=== PATIENT | male | born 1935 | race Hispanic/Latino ===

== ENCOUNTER → 2018-04-13 | Outpatient (CLI) | payer MEDICARE ==
[~2018-04-13] VITALS: Ht 162.6 cm; Wt 69.9 kg
[~2018-04-13] MED LIST: ASPI-555 PO; ATOR40TA71 PO; CEFTRIAXONE SODIUM 1 GM IVP SCH; ERGO500014 PO; LOSA1TAB42 PO; METO-409 PO; TAMS0.4C32 PO
[2018-04-13 09:40] LABS: BASOPHILS % (AUTO) 0.4 % (0.0-5.0); HEMATOCRIT 39.7 % (42-54); LYMPHOCYTES % (AUTO) 7.3 % (21.0-51.0); MEAN CORPUSCULAR HEMOGLOBIN 29.6 pg (27.0-33.0); MEAN CORPUSCULAR HGB CONC 33.9 g/dL (32.0-36.0); MEAN CORPUSCULAR VOLUME 87.1 fL (79-99); MONOCYTES % (AUTO) 10.5 % (3.0-13.0); NEUTROPHILS % (AUTO) 81.8 % (40.0-77.0); PLATELET COUNT (AUTO) 117 K/uL (130-400); RED BLOOD CELL COUNT(AUTO) 4.56 MIL/uL (4.50-6.20); RED CELL DISTRIBUTION WIDTH 13.4 % (11.0-15.5); WHITE BLOOD COUNT (AUTO) 8.2 K/uL (4.8-10.8)
[2018-04-13 09:47] VITALS: BP 127/61
[2018-04-13 09:50] LABS: CREATININE 1.3 mg/dL (0.5-1.5); POTASSIUM 3.3 mmol/L (3.5-5.1)
== END ==
LOC: DAH 10:00 → EDSTATUS 04-21 08:00
PROVIDERS: ATTEND Urology
DX: N40.0 Benign prostatic hyperplasia without lower urinary tract symptoms (principal); Z53.9 Procedure and treatment not carried out, unspecified reason; J11.1 Influenza due to unidentified influenza virus with other respiratory manifestations
CPT/HCPCS: 36415; 80048; 85025; 93005

== ENCOUNTER 2018-04-14 09:13 | Inpatient (IN) | payer MEDICARE ==
[~2018-04-14] VITALS: Ht 167.6 cm; Wt 70.3 kg
[~2018-04-14 09:13] MED LIST changes: -CEFTRIAXONE SODIUM 1 GM IVP SCH
[2018-04-14] MEDS ORDERED: SODIUM CHLORIDE 0.9% 1000ML 1,000 ML IV ONE (09:27)
[2018-04-14] MEDS ORDERED: CEFTRIAXONE SODIUM 1 GM ONE (09:27)
[2018-04-14 10:00] LABS: BASOPHILS % (AUTO) 0.4 % (0.0-5.0); HEMATOCRIT 36.7 % (42-54); LYMPHOCYTES % (AUTO) 6.3 % (21.0-51.0); MEAN CORPUSCULAR HEMOGLOBIN 28.8 pg (27.0-33.0); MEAN CORPUSCULAR HGB CONC 33.6 g/dL (32.0-36.0); MEAN CORPUSCULAR VOLUME 85.8 fL (79-99); MONOCYTES % (AUTO) 9.8 % (3.0-13.0); NEUTROPHILS % (AUTO) 83.5 % (40.0-77.0); NUCLEATED RED BLOOD CELLS 0.1 % (0.0-0.19); PLATELET COUNT (AUTO) 101 K/uL (130-400); RED BLOOD CELL COUNT(AUTO) 4.27 MIL/uL (4.50-6.20); RED CELL DISTRIBUTION WIDTH 13.3 % (11.0-15.5); WHITE BLOOD COUNT (AUTO) 7.2 K/uL (4.8-10.8)
[2018-04-14 10:11] LABS: ALBUMIN 3.2 g/dL (3.5-5.0); BILIRUBIN,TOTAL 1.3 mg/dL (0.2-1.0); CREATININE 1.6 mg/dL (0.5-1.5); TOTAL PROTEIN, SERUM 6.9 g/dL (6.0-8.3)
[2018-04-14 10:13] LABS: POTASSIUM 2.9 mmol/L (3.5-5.1)
[2018-04-14 10:20] LABS: APPEARANCE,URINE Cloudy (CLEAR); BILIRUBIN,URINE Small (NEGATIVE); COLOR,URINE Dark Yellow (YELLOW); GLUCOSE, URINE (UA) Negative (NEGATIVE); KETONES,URINE Trace mg/dL (NEGATIVE); LEUKOCYTE ESTERASE ,URINE Moderate (NEGATIVE); NITRATE,URINE Negative (NEGATIVE); OCCULT BLOOD,URINE Moderate (NEGATIVE); PROTEIN,URINE POS 2+ (NEGATIVE)
[2018-04-14 10:26] LABS: INR 1.17 (0.85-1.15); PROTHROMBIN TIME 12.2 SEC (9.6-11.6)
[2018-04-14 10:28] LABS: BACTERIA,URINE Rare /HPF (None Seen); SQUAMOUS EPITHELIAL CELL,UR Rare /HPF (0-2)
[2018-04-14 10:42] LABS: PARTIAL THROMBOPLASTIN TIME 36.8 SEC (26.3-35.5)
[2018-04-14] MEDS ORDERED: ONDANSETRON HCL 4 MG/2 ML VIAL ONE (11:03)
[2018-04-14] MEDS ORDERED: POTASSIUM CHLORIDE 20 MEQ ERTAB PO ONE ×3 (11:03→14:09)
[2018-04-14] MEDS ORDERED: LEVOFLOXACIN 750 MG/D5W 150 ML 150 ML ONE (11:04)
[2018-04-14 12:45] VITALS: BP 139/97
[2018-04-14] MEDS: SODIUM CHLORIDE 0.9% 1000ML 1,000 ML IV SCH (14:30)
[2018-04-14] MEDS ORDERED: ONDANSETRON HCL 4 MG/2 ML VIAL IV PRN (14:30)
[2018-04-14] MEDS ORDERED: CEFTRIAXONE SODIUM 1 GM IV SCH (14:30)
[2018-04-14] MEDS ORDERED: MORPHINE SULFATE 2 MG/ML 1ML SYG IV PRN (14:30)
[2018-04-14 16:00] VITALS: BP 150/67
[2018-04-14] MEDS: ACETAMINOPHEN 325 MG TAB PO PRN (19:30)
[2018-04-14 20:00] VITALS: BP 169/87
[2018-04-14] MEDS: TAMSULOSIN HCL 0.4 MG CAP.ER.24H PO SCH (21:44)
[2018-04-14] MEDS: ATORVASTATIN CALCIUM 40 MG TABLET PO SCH (21:44)
[2018-04-14] MEDS: HYDRALAZINE HCL 20 MG/ML VIAL IV PRN (21:45)
[2018-04-14] MEDS: METOPROLOL TARTRATE 50 MG TAB PO SCH (21:45)
[2018-04-15] VITALS: BP 122/59
[2018-04-15] MEDS: ACETAMINOPHEN 325 MG TAB PO PRN ×3 (00:15→22:02)
[2018-04-15 04:00] VITALS: BP 126/53
[2018-04-15 05:48] LABS: HEMATOCRIT 37.5 % (42-54); MEAN CORPUSCULAR HEMOGLOBIN 29.4 pg (27.0-33.0); MEAN CORPUSCULAR HGB CONC 34.2 g/dL (32.0-36.0); PLATELET COUNT (AUTO) 104 K/uL (130-400); RED BLOOD CELL COUNT(AUTO) 4.36 MIL/uL (4.50-6.20); RED CELL DISTRIBUTION WIDTH 13.8 % (11.0-15.5); WHITE BLOOD COUNT (AUTO) 7.2 K/uL (4.8-10.8)
[2018-04-15 05:52] LABS: CREATININE 1.5 mg/dL (0.5-1.5); POTASSIUM 3.6 mmol/L (3.5-5.1)
[2018-04-15 08:00] VITALS: BP 135/108
[2018-04-15] MEDS: FAMOTIDINE/PF 20 MG/2 ML VIAL IV SCH (08:54)
[2018-04-15] MEDS: METOPROLOL TARTRATE 50 MG TAB PO SCH ×2 (08:54→22:02)
[2018-04-15 12:00] VITALS: BP 126/57
[2018-04-15] MEDS: ZOSYN 3.375GM+NS 50ML 50 ML IV SCH ×2 (12:11→17:56)
[2018-04-15 16:00] VITALS: BP 145/64
[2018-04-15] MEDS: SODIUM CHLORIDE 0.9% 1000ML 1,000 ML IV SCH (18:00)
[2018-04-15 20:00] VITALS: BP 132/82
[2018-04-15] MEDS: TAMSULOSIN HCL 0.4 MG CAP.ER.24H PO SCH (22:01)
[2018-04-15] MEDS: ATORVASTATIN CALCIUM 40 MG TABLET PO SCH (22:01)
[2018-04-16] VITALS (7 sets, daily range): BP systolic 102–160; BP diastolic 47–65
[2018-04-16] MEDS: ZOSYN 3.375GM+NS 50ML 50 ML IV SCH ×2 (03:27→09:50)
[2018-04-16 04:59] LABS: HEMATOCRIT 35.4 % (42-54); MEAN CORPUSCULAR HEMOGLOBIN 28.4 pg (27.0-33.0); MEAN CORPUSCULAR VOLUME 85.9 fL (79-99); PLATELET COUNT (AUTO) 90 K/uL (130-400); RED BLOOD CELL COUNT(AUTO) 4.12 MIL/uL (4.50-6.20); RED CELL DISTRIBUTION WIDTH 13.7 % (11.0-15.5); WHITE BLOOD COUNT (AUTO) 6.6 K/uL (4.8-10.8)
[2018-04-16 05:07] LABS: CREATININE 1.3 mg/dL (0.5-1.5)
[2018-04-16 05:09] LABS: POTASSIUM 2.9 mmol/L (3.5-5.1)
[2018-04-16] MEDS: POTASSIUM CHLORIDE 20 MEQ ERTAB PO SCH ×2 (06:53→11:12)
[2018-04-16] MEDS: ENOXAPARIN SODIUM 40 MG/0.4 ML SYRINGE SQ SCH (09:00)
[2018-04-16] MEDS: FAMOTIDINE/PF 20 MG/2 ML VIAL IV SCH (09:46)
[2018-04-16] MEDS: METOPROLOL TARTRATE 50 MG TAB PO SCH ×2 (09:46→20:51)
[2018-04-16] MEDS: NS-20 MEQ KCL 1000ML 1,000 ML IV SCH (12:56)
[2018-04-16 15:06] LABS: CREATININE 1.2 mg/dL (0.5-1.5); POTASSIUM 3.6 mmol/L (3.5-5.1)
[2018-04-16] MEDS: ACETAMINOPHEN 325 MG TAB PO PRN (15:29)
[2018-04-16] MEDS: MEROPENEM 500 MG VIAL IVP SCH (17:51)
[2018-04-16] MEDS: ATORVASTATIN CALCIUM 40 MG TABLET PO SCH (20:51)
[2018-04-16] MEDS: TAMSULOSIN HCL 0.4 MG CAP.ER.24H PO SCH (20:51)
[2018-04-17] MEDS: MEROPENEM 500 MG VIAL IVP SCH ×3 (00:31→18:05)
[2018-04-17] MEDS: NS-20 MEQ KCL 1000ML 1,000 ML IV SCH ×2 (00:31→18:06)
[2018-04-17 03:00] VITALS: BP 154/77
[2018-04-17 05:22] LABS: HEMATOCRIT 33.9 % (42-54); MEAN CORPUSCULAR HEMOGLOBIN 29.7 pg (27.0-33.0); MEAN CORPUSCULAR HGB CONC 34.6 g/dL (32.0-36.0); MEAN CORPUSCULAR VOLUME 85.9 fL (79-99); PLATELET COUNT (AUTO) 120 K/uL (130-400); RED BLOOD CELL COUNT(AUTO) 3.95 MIL/uL (4.50-6.20); RED CELL DISTRIBUTION WIDTH 13.8 % (11.0-15.5); WHITE BLOOD COUNT (AUTO) 6.7 K/uL (4.8-10.8)
[2018-04-17 05:39] LABS: ALBUMIN 2.1 g/dL (3.5-5.0); BILIRUBIN,TOTAL 0.6 mg/dL (0.2-1.0); POTASSIUM 3.6 mmol/L (3.5-5.1); TOTAL PROTEIN, SERUM 5.4 g/dL (6.0-8.3)
[2018-04-17] MEDS: POTASSIUM CHLORIDE 20 MEQ ERTAB PO SCH ×2 (06:03→09:11)
[2018-04-17] MEDS: ENOXAPARIN SODIUM 40 MG/0.4 ML SYRINGE SQ SCH (09:00)
[2018-04-17 09:21] VITALS: BP 133/62
[2018-04-17] MEDS: METOPROLOL TARTRATE 50 MG TAB PO SCH ×2 (09:31→21:10)
[2018-04-17] MEDS: FAMOTIDINE/PF 20 MG/2 ML VIAL IV SCH (09:31)
[2018-04-17 12:23] VITALS: BP 135/61
[2018-04-17] MEDS ORDERED: LACTULOSE 20 GM/30 ML UDCUP PO SCH (16:45)
[2018-04-17 16:59] VITALS: BP 144/63
[2018-04-17 19:00] VITALS: BP 146/69
[2018-04-17] MEDS: DOCUSATE SODIUM 100 MG CAP PO SCH (21:10)
[2018-04-17] MEDS: TAMSULOSIN HCL 0.4 MG CAP.ER.24H PO SCH (21:10)
[2018-04-17] MEDS: ATORVASTATIN CALCIUM 40 MG TABLET PO SCH (21:10)
[2018-04-18] VITALS (7 sets, daily range): BP systolic 134–159; BP diastolic 62–75
[2018-04-18] MEDS: MEROPENEM 500 MG VIAL IVP SCH ×4 (00:45→23:59)
[2018-04-18] MEDS: POTASSIUM CHLORIDE 20 MEQ ERTAB PO SCH ×2 (05:41→07:41)
[2018-04-18 05:57] LABS: HEMATOCRIT 35.2 % (42-54); MEAN CORPUSCULAR HEMOGLOBIN 28.6 pg (27.0-33.0); MEAN CORPUSCULAR HGB CONC 33.2 g/dL (32.0-36.0); MEAN CORPUSCULAR VOLUME 86.3 fL (79-99); PLATELET COUNT (AUTO) 132 K/uL (130-400); RED BLOOD CELL COUNT(AUTO) 4.08 MIL/uL (4.50-6.20); RED CELL DISTRIBUTION WIDTH 14.3 % (11.0-15.5); WHITE BLOOD COUNT (AUTO) 6.3 K/uL (4.8-10.8)
[2018-04-18 06:11] LABS: POTASSIUM 3.5 mmol/L (3.5-5.1)
[2018-04-18] MEDS: DOCUSATE SODIUM 100 MG CAP PO SCH ×2 (09:42→22:07)
[2018-04-18] MEDS: FAMOTIDINE/PF 20 MG/2 ML VIAL IV SCH (09:42)
[2018-04-18] MEDS: METOPROLOL TARTRATE 50 MG TAB PO SCH ×2 (09:42→22:07)
[2018-04-18] MEDS: NS-20 MEQ KCL 1000ML 1,000 ML IV SCH (17:46)
[2018-04-18] MEDS: ATORVASTATIN CALCIUM 40 MG TABLET PO SCH (22:06)
[2018-04-18] MEDS: TAMSULOSIN HCL 0.4 MG CAP.ER.24H PO SCH (22:07)
[2018-04-19 03:00] VITALS: BP 153/69
[2018-04-19 04:25] LABS: CREATININE 0.8 mg/dL (0.5-1.5); POTASSIUM 3.4 mmol/L (3.5-5.1)
[2018-04-19 08:00] VITALS: BP 126/61
[2018-04-19] MEDS: DOCUSATE SODIUM 100 MG CAP PO SCH ×2 (09:00→21:00)
[2018-04-19] MEDS: MEROPENEM 500 MG VIAL IVP SCH (09:12)
[2018-04-19] MEDS: FAMOTIDINE/PF 20 MG/2 ML VIAL IV SCH (09:15)
[2018-04-19] MEDS: METOPROLOL TARTRATE 50 MG TAB PO SCH ×2 (09:20→21:09)
[2018-04-19] MEDS ORDERED: POTASSIUM CHLORIDE 10% ELIXIR 20 MEQ/15 ML UDCUP PO SCH (10:30)
[2018-04-19 12:00] VITALS: BP 140/65
[2018-04-19 16:00] VITALS: BP 141/67
[2018-04-19] MEDS: NS-20 MEQ KCL 1000ML 1,000 ML IV SCH (17:40)
[2018-04-19] MEDS: AMOXICILLIN/POTASSIUM CLAV 500-125 TABLET PO SCH ×2 (18:05→23:56)
[2018-04-19 19:00] VITALS: BP 166/72
[2018-04-19] MEDS: ATORVASTATIN CALCIUM 40 MG TABLET PO SCH (21:09)
[2018-04-19] MEDS: PANTOPRAZOLE SODIUM 40 MG TABLET.DR PO SCH (21:09)
[2018-04-19] MEDS: TAMSULOSIN HCL 0.4 MG CAP.ER.24H PO SCH (21:09)
[2018-04-20] VITALS: BP 174/75
[2018-04-20 04:00] VITALS: BP 176/96
[2018-04-20] MEDS: HYDRALAZINE HCL 20 MG/ML VIAL IV PRN (04:20)
[2018-04-20 07:00] VITALS: BP 100/63
[2018-04-20] MEDS: METOPROLOL TARTRATE 50 MG TAB PO SCH ×2 (08:38→22:25)
[2018-04-20] MEDS: PANTOPRAZOLE SODIUM 40 MG TABLET.DR PO SCH ×2 (08:38→22:25)
[2018-04-20] MEDS: DOCUSATE SODIUM 100 MG CAP PO SCH ×2 (08:40→21:00)
[2018-04-20 11:00] VITALS: BP 132/71
[2018-04-20] MEDS: MEROPENEM 1 GM VIAL IVP SCH ×2 (11:41→18:50)
[2018-04-20 16:00] VITALS: BP 164/72
[2018-04-20] MEDS: NS-20 MEQ KCL 1000ML 1,000 ML IV SCH (18:50)
[2018-04-20 19:00] VITALS: BP 126/56
[2018-04-20] MEDS: TAMSULOSIN HCL 0.4 MG CAP.ER.24H PO SCH (22:25)
[2018-04-20] MEDS: ATORVASTATIN CALCIUM 40 MG TABLET PO SCH (22:25)
[2018-04-21] VITALS: BP 157/71
[2018-04-21] MEDS ORDERED: SODIUM CHLORIDE 0.9% 100 ML IV ONE (01:52)
[2018-04-21] MEDS: MEROPENEM 1 GM VIAL IVP SCH ×2 (02:17→12:10)
[2018-04-21 04:00] VITALS: BP 138/69
[2018-04-21 04:45] LABS: HEMATOCRIT 33.2 % (42-54); MEAN CORPUSCULAR HEMOGLOBIN 29.7 pg (27.0-33.0); MEAN CORPUSCULAR HGB CONC 34.4 g/dL (32.0-36.0); MEAN CORPUSCULAR VOLUME 86.3 fL (79-99); PLATELET COUNT (AUTO) 189 K/uL (130-400); RED BLOOD CELL COUNT(AUTO) 3.85 MIL/uL (4.50-6.20); RED CELL DISTRIBUTION WIDTH 14.3 % (11.0-15.5); WHITE BLOOD COUNT (AUTO) 5.9 K/uL (4.8-10.8)
[2018-04-21 04:52] LABS: CREATININE 0.9 mg/dL (0.5-1.5); POTASSIUM 3.5 mmol/L (3.5-5.1)
[2018-04-21 08:43] VITALS: BP 134/90
[2018-04-21] MEDS: METOPROLOL TARTRATE 50 MG TAB PO SCH (09:15)
[2018-04-21] MEDS: DOCUSATE SODIUM 100 MG CAP PO SCH (09:15)
[2018-04-21] MEDS: PANTOPRAZOLE SODIUM 40 MG TABLET.DR PO SCH (09:15)
[2018-04-21] MEDS ORDERED: MAGNESIUM 2GM PREMIX 50ML 50 ML IV PRN (10:30)
[2018-04-21] MEDS ORDERED: POTASSIUM CHLORIDE 20MEQ/100ML 100 ML IV PRN (10:30)
[2018-04-21] MEDS ORDERED: LIDOCAINE HCL-MPF 1% 2ML VIAL IVP PRN (10:30)
[2018-04-21] MEDS ORDERED: POTASSIUM CHLORIDE 10% ELIXIR 20 MEQ/15 ML UDCUP PO PRN (10:30)
[2018-04-21] MEDS ORDERED: POTASSIUM CHLORIDE 20 MEQ ERTAB PO PRN (10:30)
[2018-04-21 13:52] VITALS: BP 158/74
== END 2018-04-21 14:45 | disposition home or self-care (01) | DRG 871 ==
LOC: EDH 09:13 → EDHIP 11:36 → 3CH 12:33
PROVIDERS: ADMIT Hospitalist; ATTEND Hospitalist
DX: A41.9 Sepsis, unspecified organism (principal); N17.0 Acute kidney failure with tubular necrosis; N39.0 Urinary tract infection, site not specified; N41.9 Inflammatory disease of prostate, unspecified; E86.0 Dehydration; R19.7 Diarrhea, unspecified; E87.6 Hypokalemia; E78.5 Hyperlipidemia, unspecified; E83.42 Hypomagnesemia; I10 Essential (primary) hypertension; N20.0 Calculus of kidney; I25.10 Atherosclerotic heart disease of native coronary artery without angina pectoris; Z87.442 Personal history of urinary calculi; Z87.891 Personal history of nicotine dependence; Z95.1 Presence of aortocoronary bypass graft; Z83.3 Family history of diabetes mellitus; Z80.9 Family history of malignant neoplasm, unspecified; Z82.49 Family history of ischemic heart disease and other diseases of the circulatory system
CPT/HCPCS: 36415; 71045; 80048; 80053; 81001; 82948; 83605; 83735; 84484; 85025; 85027; 85610; 85730; 87040; 87088; 87486; 87581; 87633; 87798; 87804; 92610; 93005; 97039; A4218; G0378; J0360; J0696; J1650; J1956; J2185; J2405; J2543; J3480; J3490; J7030

== ENCOUNTER 2018-07-05 12:04 | Emergency (ER) | payer MEDICARE | END 2018-07-05 13:01 | disposition home or self-care (01) | LOC: EDH 12:04 | DX: L08.89 Other specified local infections of the skin and subcutaneous tissue (principal); L53.8 Other specified erythematous conditions; I10 Essential (primary) hypertension; E78.5 Hyperlipidemia, unspecified; Z87.891 Personal history of nicotine dependence | CPT/HCPCS: 73130 ==

== ENCOUNTER 2018-08-13 06:38 | Day surgery (SDC) | payer MEDICARE ==
[2018-08-11 13:38] LABS: BASOPHILS % (AUTO) 0.5 % (0.0-5.0); EOSINOPHILS % (AUTO) 2.2 % (0.0-8.0); HEMATOCRIT 34.5 % (42-54); LYMPHOCYTES % (AUTO) 22.3 % (21.0-51.0); MEAN CORPUSCULAR HGB CONC 33.2 g/dL (32.0-36.0); MEAN CORPUSCULAR VOLUME 87.4 fL (79-99); MONOCYTES % (AUTO) 9.3 % (3.0-13.0); NEUTROPHILS % (AUTO) 65.7 % (40.0-77.0); PLATELET COUNT (AUTO) 168 K/uL (130-400); RED BLOOD CELL COUNT(AUTO) 3.95 MIL/uL (4.50-6.20); RED CELL DISTRIBUTION WIDTH 14.9 % (11.0-15.5); WHITE BLOOD COUNT (AUTO) 6.4 K/uL (4.8-10.8)
[2018-08-11 13:45] VITALS: BP 177/94
[2018-08-11 13:45] LABS: CREATININE 1.1 mg/dL (0.5-1.5); POTASSIUM 4.2 mmol/L (3.5-5.1)
--- NOTE | 2018-08-11 14:05 | NUR ---
ekg abnormal ekg reported to Dr. Valenzuela. no further orders given. ok to proceed with sx
[2018-08-11 14:47] VITALS: BP 150/80
--- NOTE | 2018-08-11 14:47 | NUR ---
RE CHECKED B/P 150/80---68---16,,,,PT WITH NO DISCOMFORT
[~2018-08-13] VITALS: Ht 162.6 cm; Wt 69.1 kg
[2018-08-13] VITALS (16 sets, daily range): BP systolic 130–174; BP diastolic 61–77
[~2018-08-13 06:38] MED LIST changes: +LATA7.5D OP; +NETA2.5D OP; -TAMS0.4C32 PO; +ZOSYN 3.375GM+NS 50ML 50 ML IV SCH
[2018-08-13] MEDS ORDERED: LACTATED RINGERS 1000ML 1,000 ML IV ONE (07:13)
--- NOTE | 2018-08-13 07:15 | NUR ---
CONSULT: TAMARA MONACO RN NOTIFIED ROSEMARY MAR CRNA OF PATIENT NOT TAKING HIS METOPROLOL IN AM, STATED NO NEED TO TAKE IN AM.
[2018-08-13] MEDS ORDERED: ZOSYN 3.375GM+NS 50ML 50 ML IV ONE (07:17)
[2018-08-13] MEDS ORDERED: LIDOCAINE PF 2% 5ML ABBOJECT ONE (07:35)
[2018-08-13] MEDS ORDERED: PROPOFOL 10 MG/ML 20ML VIAL IV ONE (07:35)
[2018-08-13] MEDS ORDERED: FENTANYL CITRATE PF 50 MCG/1 ML 2ML VIAL ONE ×3 (07:36→11:06)
[2018-08-13] MEDS ORDERED: EPHEDRINE SULFATE 50 MG/ML AMPULE ONE (07:58)
[2018-08-13] MEDS ORDERED: OPIUM/BELLADONNA ALKALOIDS 1 EACH SUPP.RECT RC ONE (11:07)
[2018-08-13] MEDS ORDERED: PHENAZOPYRIDINE HCL 200 MG TABLET ONE (11:48)
--- NOTE | 2018-08-13 11:55 | NUR ---
RECEIVE PT RECEIVED FROM PACU VIA STRETCHER. AWAKE ALERT ORIENTED X3. PT STABLE. NOT IN ANY APPARENT DISTRESS. NO COMPLAINTS MADE. 18FR [place] CATH IN PLACE, SECURED IN PLACE, DRAINING LIGHT PINKISH URINE, NO CLOTS NOTED, 550 ML. CALL TREJO WITHIN REACH. WILL CALL FOR FAMILY TO COM IN TO ROOM WITH PT.
--- NOTE | 2018-08-13 12:40 | NUR ---
ELEVATED BP PT'S SBP IN THE 170'S, PT ASYMPTOMATIC. NOTIFIED BETTYE LINDSAY. PER [employer], RECHECK BP, MAY GIVE HYDRALAZINE 5MG IVP X 1 DOSE FOR SBP 170 OR ABOVE.
[2018-08-13] MEDS ORDERED: HYDRALAZINE HCL 20 MG/ML VIAL ONE (12:46)
--- NOTE | 2018-08-13 13:05 | NUR ---
DISCHARGE PT DISCHARGED VIA WHEELCHAIR WITH DAUGHTERS. PT STABLE. DENIES ANY PAIN OR CHEST PAIN, NO SHORTNESS OF BREATH OR LIGHTHEADEDNESS. 18FR STANTON CATH DRAINING CLEAR LIGHT PINK URINE TO LEG BAG, NO CLOTS NOTED. DRAINED 200ML PRIOR TO DISCHARGE. DISCHARGE INSTRUCTIONS GIVEN DAUGHTERS. VERBALIZED UNDERSTANDING. STANTON CATH HOME CARE INSTRUCTIONS GIVEN BY MANNY MARTÍNEZ. REINFORCED ST[facility] CATH CARE INSTRUCTIONS TO DAUGHTERS, VERBALIZED UNDERSTANDING. ALSO INSTRUCTED TO MONITOR PT'S BP AT HOME, IF ELEVATED OR IF HAVING CARDIAC SYMPTOMS LIKE CHEST PAIN, SOB, LIGHTHEADEDNESS, ETC, GO TO ER OR CALL 911. VERBALIZED UNDERSTANDING.
[2018-08-13] MEDS ORDERED: HYDRALAZINE HCL 20 MG/ML VIAL IV PRN (13:15)
--- NOTE | 2018-08-13 14:50 | NUR ---
REASSES PT BP153/70. DID NOT GIVE HYDRALAZINE.
== END 2018-08-13 13:05 | disposition home or self-care (01) ==
LOC: DAH 06:38
PROVIDERS: ATTEND Urology
DX: N40.1 Benign prostatic hyperplasia with lower urinary tract symptoms (principal); R33.8 Other retention of urine; N21.0 Calculus in bladder; I25.10 Atherosclerotic heart disease of native coronary artery without angina pectoris; Z95.1 Presence of aortocoronary bypass graft; I10 Essential (primary) hypertension; M81.0 Age-related osteoporosis without current pathological fracture; Z98.890 Other specified postprocedural states; Z79.899 Other long term (current) drug therapy; Z87.891 Personal history of nicotine dependence; I21.3 ST elevation (STEMI) myocardial infarction of unspecified site
CPT/HCPCS: 36415; 52318; 52648; 80048; 85025; 93005; A4354; A4358; A4510; A4600; J0360; J2001; J2543; J2704; J3010 ×3; J3490; J7120 ×2

== ENCOUNTER 2019-01-07 05:25 | Day surgery (SDC) | payer MEDICARE ==
[2019-01-05 15:13] LABS: BASOPHILS % (AUTO) 1.3 % (0.0-5.0); EOSINOPHILS % (AUTO) 2.4 % (0.0-8.0); HEMATOCRIT 37.3 % (42-54); LYMPHOCYTES % (AUTO) 35.1 % (21.0-51.0); MEAN CORPUSCULAR HEMOGLOBIN 29.9 pg (27.0-33.0); MEAN CORPUSCULAR HGB CONC 33.6 g/dL (32.0-36.0); MEAN CORPUSCULAR VOLUME 88.9 fL (79-99); MONOCYTES % (AUTO) 11.4 % (3.0-13.0); NEUTROPHILS % (AUTO) 49.8 % (40.0-77.0); PLATELET COUNT (AUTO) 138 K/uL (130-400); RED CELL DISTRIBUTION WIDTH 14.4 % (11.0-15.5); WHITE BLOOD COUNT (AUTO) 5.3 K/uL (4.8-10.8)
[2019-01-05 15:20] VITALS: BP 199/85
[2019-01-05 15:22] LABS: CREATININE 1.2 mg/dL (0.5-1.5)
[~2019-01-07] VITALS: Ht 165.1 cm; Wt 69.3 kg
[2019-01-07] VITALS (17 sets, daily range): BP systolic 115–163; BP diastolic 53–72
[~2019-01-07 05:25] MED LIST changes: -ASPI-555 PO; -ERGO500014 PO; -LATA7.5D OP; -NETA2.5D OP; +TAMS-1 PO; -ZOSYN 3.375GM+NS 50ML 50 ML IV SCH
[2019-01-07] MEDS ORDERED: ZOSYN 3.375GM+NS 50ML 50 ML IV SCH (06:00)
[2019-01-07] MEDS ORDERED: LACTATED RINGERS 1000ML 1,000 ML IV ONE (07:18)
[2019-01-07] MEDS ORDERED: IOHEXOL-350 50ML VIAL IV ONE (07:42)
[2019-01-07] MEDS ORDERED: DEXAMETHASONE SOD PHOSPHATE 10MG/ML 1ML VIAL ONE (07:48)
[2019-01-07] MEDS ORDERED: PROPOFOL 10 MG/ML 20ML VIAL IV ONE (07:48)
[2019-01-07] MEDS ORDERED: FENTANYL CITRATE PF 50 MCG/1 ML 2ML VIAL ONE (07:48)
[2019-01-07] MEDS ORDERED: LIDOCAINE PF 2% 5ML ABBOJECT ONE (07:48)
[2019-01-07] MEDS ORDERED: ROCURONIUM 10MG/1ML SYR 10 MG/ML ML ONE (07:55)
[2019-01-07] MEDS ORDERED: EPHEDRINE SULFATE 50 MG/ML AMPULE ONE (08:10)
[2019-01-07] MEDS ORDERED: ONDANSETRON HCL 4 MG/2 ML VIAL ONE (08:11)
[2019-01-07] MEDS ORDERED: GLYCOPYRROLATE 1 MG/5 ML SYRINGE ONE (08:29)
[2019-01-07] MEDS ORDERED: NEOSTIGMINE 5MG/5ML SYR IV ONE (08:29)
--- NOTE | 2019-01-07 10:25 | NUR ---
POST RECEIVED PT FROM PACU, S/P CYSTOSCOPY, LEFT URETERSCOPY. STRING ATTACHED TO PENIS. 16F FC IN PLACE DRAINING PINK TINT URINE, PT AWAKE AND ALERT IN BED, NO DISTRESS NOTED. PT DENIED ANY PAIN OR DISCOMFORTS. PLAN OF CARE DISCUSS WITH PATIENT /FAMILY
--- NOTE | 2019-01-07 10:30 | NUR ---
FC FC DC PER MD ORDERS. PT ORALIA WELL.
[2019-01-07] MEDS ORDERED: PHENAZOPYRIDINE HCL 200 MG TABLET ONE (10:34)
--- NOTE | 2019-01-07 11:00 | NUR ---
dc dc instructions given to pt daughter with rx, instructed to f/u with dr. ellison. NO TO PULL string attached to penis, both verbalized understanding.
--- NOTE | 2019-01-07 11:05 | NUR ---
dc pt dc home via [place],no distress noted. accompanied by daughter. string attached to penis .
[2019-01-10] MEDS ORDERED: PIPERACILLIN SODIUM/TAZOBACTAM 3.375 GM VIAL IV ONE (07:55)
== END 2019-01-07 11:05 | disposition home or self-care (01) ==
LOC: DAH 05:25
PROVIDERS: ATTEND Urology
DX: N13.2 Hydronephrosis with renal and ureteral calculous obstruction (principal); I10 Essential (primary) hypertension; I25.10 Atherosclerotic heart disease of native coronary artery without angina pectoris; M81.0 Age-related osteoporosis without current pathological fracture; Z95.5 Presence of coronary angioplasty implant and graft; Z79.899 Other long term (current) drug therapy; Z98.890 Other specified postprocedural states; Z87.891 Personal history of nicotine dependence; Z86.73 Personal history of transient ischemic attack (TIA), and cerebral infarction without residual deficits; Z82.3 Family history of stroke; Z82.49 Family history of ischemic heart disease and other diseases of the circulatory system
CPT/HCPCS: 36415 ×2; 52356; 74420; 80048; 82360 ×2; 85025; 93005; 99284; A4215; A4221; A4222; A4223 ×2; A4344; A4358; A4510; A4600; A4663; C1758; C1769; C2617; J1100; J2001; J2405; J2543; J2704; J2710; J3010; J3490 ×2; J7120 ×2; Q9967; 51702

== ENCOUNTER 2019-01-07 18:09 | Emergency (ER) | payer MEDICARE | END 2019-01-07 19:33 | disposition home or self-care (01) | LOC: EDH 18:09 | DX: R33.9 Retention of urine, unspecified (principal); I10 Essential (primary) hypertension; E78.5 Hyperlipidemia, unspecified | CPT/HCPCS: 51702 ==